=== PATIENT | female | born 1975 ===

== ENCOUNTER 2022-07-05 07:01 | Day surgery (SDC) | payer MEDICAID ==
[~2022-07-05 07:01] MED LIST: Dexamethasone 4 MG/ML 5 ML MDV ONE; Dexmedetomidine 200 MCG/2 ML SDV ONE; Ketorolac 30 MG/ML SDV ONE; Lactated Ringers 1,000 ML ONE; Lidocaine 1%/Sod Bicarbonate in NS 8.4% 1 ML Syringe IDERM PRN; Midazolam 1 MG/ML 2 ML SDV ONE; Ondansetron 4 MG/2 ML SDV ONE; Propofol 200 MG/20 ML SDV ONE; Rocuronium 50 MG/5 ML Vial ONE; ceFAZolin 2 GM Vial ONE; fentaNYL 100 MCG/2 ML SDV ONE
[2022-07-05] MEDS ORDERED: Lidocaine 1% 4 ML ONE (07:02)
[2022-07-05] MEDS: Lactated Ringers 1,000 ML IV SCH ×2 (07:20→11:25)
[2022-07-05] MEDS ORDERED: Sodium Chloride 0.9% 50 ML SDV ONE (07:29)
[2022-07-05] MEDS ORDERED: Lidocaine 1% with EPINEPHrine 1:100,000 20 ML MDV ONE (07:29)
[2022-07-05] MEDS ORDERED: Neostigmine Methylsulfate 10 MG/10 ML MDV ONE (07:59)
[2022-07-05] MEDS ORDERED: fentaNYL 100 MCG/2 ML SDV ONE (08:02)
[2022-07-05] MEDS ORDERED: Ondansetron 4 MG/2 ML SDV IVPUSH PRN ×2 (08:09→08:38)
[2022-07-05] MEDS ORDERED: fentaNYL 100 MCG/2 ML SDV IVPUSH PRN (08:09)
[2022-07-05] MEDS ORDERED: HYDROmorphone 0.5 MG/0.5 ML Syringe IVPUSH PRN (08:09)
[2022-07-05] MEDS ORDERED: Acetaminophen/oxyCODONE 325-5 MG Tab PO PRN (08:38)
[2022-07-05] MEDS ORDERED: Sodium Chloride 0.9% 10 ML Syringe FLUSH SCH (09:00)
[2022-07-05] MEDS ORDERED: Ibuprofen 600 MG Tab PO PRN (13:00)
== END 2022-07-05 12:16 | disposition home or self-care (01) ==
LOC: JD.SDS 07:01
PROVIDERS: ATTEND Obstetrics & Gynecology
DX: N81.10 Cystocele, unspecified (principal); N92.0 Excessive and frequent menstruation with regular cycle; N81.6 Rectocele; E03.9 Hypothyroidism, unspecified; Z87.891 Personal history of nicotine dependence; Z79.890 Hormone replacement therapy
CPT/HCPCS: 58262; 81025; A9270; J0690; J1100; J1885; J2250; J2405; J2704; J2710; J3010; J7120